=== PATIENT | male | born 1950 | race Caucasian/White ===

== ENCOUNTER 2021-10-22 09:01 | Inpatient (IN) | payer OTHER ==
--- OUTSIDE RECORDS SUMMARY | 2021-10-22 09:04 | XMS REPORT | Continuity of Care Document ---
:[address] [facility] t Address [address] [place] [address] Care Team Providers Name Role Phone Pcp, Patient Does Not Have A Primary Care Physician [id number] DEIB VARGHESE Attending Clinician Unavailable Debi Austin Attending Clinician KOTA DUGAN III Attending Clinician Unavailable KOTA DUGAN III Admitting Clinician Unavailable Payers Payer Name Policy Type Policy Number Effective Date Expiration Date S anupam MEDICARE PART A [id number] 2016 \T\ B 00:00:00 Problems Condition Condition Condition Status Onset Resolution Last Treating Co mments Source Name Details Category Date Date Treatment Clinician Date No known No known Disease Unive rs active active ity of problems problems [facility] Allergies, Adverse Reactions, Alerts Allergy Allergy Status Severity Reaction(s) Onset Inactive Treating Comm ents Source Name Type Date Date Clinician NO KNOWN Drug Active Univers ALLERGIE Class ity of S [facility] Social History Social Habit Start Date Stop Date Quantity Comments Source Exposure to 2021-08-29 2021-09-08 Not sure University of SARS-CoV-2 00:00:00 09:07:00 [facility] (event) [place] Tobacco use and 2021-09-08 2021-09-08 Never used Universit y of exposure 00:00:00 00:00:00 [facility] Alcohol intake 2021-09-08 2021-09-08 Current drinker Unive rsity of 00:00:00 00:00:00 of alcohol [facility] (finding) [place] Sex Ass[birth year] Universit y of 00:00:00 00:00:00 [facility] Smoking Status Start Date Stop Date Source Current every day smoker 2021-09-08 00:00:00 Uni versity [facility] Medications Ordered Filled Start Stop Current Ordering Indication Dosage Frequency Signature Comments Components Source Medication Medication Date Date Medication? Clinician (SIG) Name Name METOPROLOL Yes Take by Univ ers SUCCINATE 6-28 mouth. ity of ORAL 09:24: [place] [address] [place] [address] atorvastati Yes Take by Uni vers n calcium 6-28 mouth. ity of (ATORVASTAT 09:24: [place] IN ORAL) [address] [place] [address] meloxicam Yes [id number] 7.5mg Take 1 U nivers 7.5 mg 6- tablet by ity of tablet 00:00: mouth [place] 00 daily. [facility] Vital Signs Vital Name Observation Time Observation Value Comments Source Heart rate 2021-09-08 14:24:00 71 /min [facility] Systolic blood 2021-09-08 14:24:00 166 mm[facility]Hg[facility] Diastolic [facility] 2021-09-08 14:24:00 79 mm[Hg] [facility] Body height 2021-09-08 14:22:00 180.3 cm [facility] Body weight 2021-09-08 14:22:00 86.183 kg [facility] BMI 2021-09-08 14:22:00 26.50 kg/m2 [facility] Procedures This patient has no known procedures. Encounters Start End Encounter Admission Attending Care Care Encounter Source Date/Time Date/Time Type Type Clinicians Facility Department ID 2021-10-22 2021-10-22 Outpatient Katie VARGHESE [facility] [id number] Univers 09:00:00 09:00:00 [facility] [id number] [facility] 2021-10-22 2021-10-22 Outpatient Katie VARGHESE [facility] [id number] Univers 09:00:00 09:00:00 DEBI [facility] 2021-09-08 2021-09-08 Office Halima [facility] [id number] Univers 15:30:00 15:30:00 Visit [facility] [id number] it y of JAE [id number] Arvind as [place]?BLEA [id number] [address] MEDICAL OFFICE BUILDING 2021-09-08 2021-09-08 Outpatient R HALIMA [facility] [id number] Univers 15:30:00 09:41:30 DEBI dotson [facility] 2019-03-01 2019-03-01 Emergency X RITCHIE KIRBY, [facility] ERT [id number] Univers 17:28:25 20:07:00 KOTA jayden [facility] Results This patient has no known results.
[2021-10-22] MEDS ORDERED: DIAZEPAM 5 MG TABLET ONE (09:37)
[2021-10-22] MEDS ORDERED: TETANUS & DIPHTHERIA TOX,ADULT 0.5 ML VIAL ONE (09:38)
--- NOTE | 2021-10-22 11:20 | RAD REPORT ---
EXAM DESCRIPTION: RAD - Knee Left 3 View - 10/22/2021 10:51 am CLINICAL HISTORY: PAIN COMPARISON: Pelvis dated 10/22/2021; Lumbar Spine 3 Views dated 10/22/2021; Wrist Right 3 View dated FINDINGS: No acute fracture. No malalignment. Mild medial compartment spurring. A knee effusion is p resent. IMPRESSION: Nonspecific moderate knee effusion. No fractures identified.
--- NOTE | 2021-10-22 11:21 | RAD REPORT ---
EXAM DESCRIPTION: RAD - Pelvis - 10/22/2021 10:51 am CLINICAL HISTORY: PAIN COMPARISON: No comparisons FINDINGS/IMPRESSION: No acute fracture. No malalignment. No significant focal degenerative changes.
--- NOTE | 2021-10-22 11:21 | RAD REPORT ---
EXAM DESCRIPTION: RAD - Lumbar Spine 3 Views - 10/22/2021 10:51 am CLINICAL HISTORY: LOWER BACK PAIN COMPARISON: No comparisons FINDINGS: No acute fracture. No malalignment. Multilevel degenerative disc disease with endplate spu rring and disc height loss. IMPRESSION: No acute osseous abnormality involving the lumbar spine.
--- NOTE | 2021-10-22 11:22 | RAD REPORT ---
EXAM DESCRIPTION: RAD - Wrist Right 3 View - 10/22/2021 10:51 am CLINICAL HISTORY: PAIN COMPARISON: No comparisons FINDINGS/IMPRESSION: No acute fracture. Widened scapholunate interval likely reflecting ligamentous disruption. This may be chronic.
--- NOTE | 2021-10-22 11:31 | EDPHYS ---
Physician Documentation [facility] Name: Fahad Ramos Age: 71 yrs Sex: Male : 1950 Arrival Date: 10/22/2021 Time: 09:08 Bed 2 Private MD: ED Physician Rojelio Pacheco HPI: 10/22 09:11 This 71 yrs old Male presents to ER via Unassigned with complaints of Back Pain, Fall ms3 Injury. 09:11 The patient presents with pain that is acute. The symptoms are located in the low back. ms3 Onset: The symptoms/episode began/occurred 2 day(s) ago. The pain does not radiate. Associated signs and symptoms: Pertinent negatives: abdominal pain, numbness, tingling, urinary retention, weakness. The problem was sustained during a fall, while walking. Modifying factors: The patient symptoms are alleviated by nothing, the patient symptoms are aggravated by any movement. Severity of symptoms: At their worst the symptoms were severe, just prior to arrival, a " 10" out of "10", in the emergency department the symptoms have improved, a " 3" out of "10". 71 yo male with PMH of HTN and CAD presents via [facility] for low back pain that began 2 days ago after slipping and falling on gravel while at work. Patient states that he slipped in his kitchen this morning falling onto his buttocks and aggravated his back pain. EMS states patient's pain was a 10/10 on their arrival. 1 gm IV Tylenol given en route and patient's pain improved to a 3/10 in the ED and described as "pain." Patient denies alleviating factors. patient states that his pain is worse with movement. Patient denies bowel or bladder incontinence, numbness, or weakness.. Historical: - Allergies: 09:14 No Known Allergies; tw2 - Home Meds: 09:14 Metoprolol Tartrate Oral [Active]; Aspirin Oral [Active]; Lipitor Oral [Active]; tw2 - PMHx: 09:14 Hypertensive disorder; Hypercholesterolemia; cardiac stent; tw2 - Immunization history:: Adult Immunizations. - Social history:: Smoking status: . ROS: 09:11 Constitutional: Negative for fever, and chills. Neck: Negative for injury, pain, and ms3 swelling, Cardiovascular: Negative for chest pain, and palpitations. Respiratory: Negative for shortness of breath, cough, wheezing, and pleuritic chest pain, Abdomen/GI: Negative for abdominal pain, nausea, vomiting, diarrhea, and constipation. 09:11 Skin: Negative for injury, rash, and discoloration, Hematologic/Lymphatic: Negative for swollen nodes, abnormal bleeding, and unusual bruising. 09:11 Back: Positive for pain with movement. 09:11 All other systems are negative. Exam: 09:11 Constitutional: This is a well developed, well nourished patient who is awake, alert, ms3 and in no acute distress. Eyes: Pupils equal round and reactive to light, extra-ocular motions intact. Lids and lashes normal. Conjunctiva and sclera are non-icteric and not injected. Periorbital areas with no swelling, redness, or edema. Neck: Trachea midline, no cervical lymphadenopathy. Supple, full range of motion without nuchal rigidity, or vertebral point tenderness. No Meningismus. Chest/axilla: Normal chest wall appearance and motion. Nontender with no deformity. Cardiovascular: Regular rate and rhythm with a normal S1 and S2. No gallops, murmurs, or rubs. Normal PMI, no JVD. No pulse deficits. Respiratory: Lungs have equal breath sounds bilaterally, clear to auscultation and percussion. No rales, rhonchi or wheezes noted. No increased work of breathing, no retractions or nasal flaring. Abdomen/GI: Soft, non-tender, with normal bowel sounds. No distension or tympany. No guarding or rebound. No evidence of tenderness throughout. Skin: Warm, dry with normal turgor. Normal color with no rashes, no lesions, and no evidence of cellulitis. MS/ Extremity: Pulses equal, no cyanosis. Neurovascular intact. Full, normal range of motion. Psych: Awake, alert, with orientation to person, place and time. Behavior, mood, and affect are within normal limits. 09:11 Back: pain, that is moderate, of the left low back and right low back, ROM is painful, with rotation to the right, with rotation to the left, normal spinal alignment noted, vertebral tenderness, is not appreciated, muscle spasm, is appreciated in the low back area, left low back and right low back. Vital Signs: 09:08 BP 122 / 65; Pulse 83; Resp 17; Temp 98.1(O); Pulse Ox 96% on R/A; Weight 86.18 kg (R); tw2 Height 6 ft. (182.88 cm) (R); Pain 3/10; 10:56 BP 128 / 67; Pulse 91; Resp 17; Pulse Ox 97% on R/A; Pain 5/10; tw2 12:23 BP 100 / 48; Pulse 67; Resp 17; Pulse Ox 95% on R/A; tw2 13:20 BP 130 / 71; Pulse 86; Resp 17; Pulse Ox 97% on R/A; tw2 14:02 BP 129 / 68; Pulse 88; Resp 17; Pulse Ox 97% on R/A; tw2 15:00 BP 133 / 60; Pulse 89; Resp 17; Pulse Ox 97% on R/A; tw2 16:00 BP 135 / 84; Pulse 88; Resp 17; Pulse Ox 99% on R/A; tw2 17:00 BP 141 / 73; Pulse 88; Resp 17; Pulse Ox 95% on R/A; tw2 18:11 BP 169 / 77; Pulse 104; Resp 17; Pulse Ox 95% on R/A; tw2 19:00 BP 152 / 69; Pulse 101; Resp 20; Pulse Ox 94% ; vc1 20:40 BP 162 / 49; Pulse 103; Resp 20; Pulse Ox 97% ; vc1 09:08 Body Mass Index 25.77 (86.18 kg, 182.88 cm) tw2 MDM: 09:11 Patient medically screened. ms3 11:32 Differential diagnosis: Abrasions vs compression fx vs muscle spasm vs wrist fx vs knee ms3 fx. Data reviewed: vital signs, nurses notes, radiologic studies, and as a result, I will discharge patient. Counseling: I had a detailed discussion with the patient and/or guardian regarding: the historical points, exam findings, and any diagnostic results supporting the discharge/admit diagnosis, radiology results, the need for outpatient follow up. 14:14 ED course: Discussed case with Dr Bardales and he accepts patient. All questions ms3 answered. Discussed necessity of admission with patient and his . All questions answered.. 10/22 12:50 Order name: CBC with Diff ms3 10/22 12:50 Order name: CMP; Complete Time: 13:55 ms3 10/22 13:04 Order name: CK; Complete Time: 13:55 ms3 10/22 13:04 Order name: Urinalysis ms3 10/22 13:46 Order name: Manual Differential EDMS 10/22 15:01 Order name: SARS RAPID eb 10/22 09:11 Order name: Lumbar Spine (3 Views) XRAY; Complete Time: 11:27 ms3 10/22 09:23 Order name: Wrist Right 3 View XRAY; Complete Time: 11:27 ms3 10/22 09:23 Order name: Knee Left 3 View XRAY; Complete Time: 11:27 ms3 10/22 09:23 Order name: Pelvis XRAY; Complete Time: 11:27 ms3 10/22 11:57 Order name: CT Lumbar Spine Wo Con; Complete Time: 12:42 ms3 10/22 15:28 Order name: Diet Heart Healthy; Complete Time: 15:29 tw2 Administered Medications: 09:24 Not Given (Duplicate Order): Tetanus-Diphtheria Toxoid Adult 0.5 ml IM once; Provide tw2 Vaccine Information Statement (VIS). 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 Exp: 07/18/2023. Lot #: [id number]. } Route: IM; Site: left deltoid; 14:07 Follow up: Response: No adverse reaction tw2 09:34 Drug: Valium (diazepam) 5 mg Route: PO; tw2 11:00 Follow up: Response: No adverse reaction; Pain is decreased tw2 14:17 Drug: NS 0.9% 1000 ml Route: IV; Rate: 125 ml/hr; Site: left antecubital; tw2 Disposition Summary: 10/22/21 14:14 Hospitalization Ordered Hospitalization Status: Inpatient Admission ms3 Provider: Armand Bardales ms3 Location: Telemetry/MedSurg (Inpatient)(10/22/21 14:14) ms3 Condition: Stable(10/22/21 14:14) ms3 Problem: new ms3 Symptoms: are unchanged ms3 Bed/Room Type: Standard ms3 Room Assignment: 222(10/22/21 20:30) mw Diagnosis - Renal failure ms3 - Generalized weakness ms3 - Low back pain(10/22/21 14:14) ms3 - Alcohol abuse ms3 - Thrombocytopenia, unspecified ms3 Forms: - Medication Reconciliation Form ms3 - SBAR form ms3 Signatures: Dispatcher [employer] EDRadha William RN RN mw Williams, Irene, RN RN iw Eleanor Bassett RN RN tw2 Rojelio Pacheco DO DO ms3 Corrections: (The following items were deleted from the chart) 12:08 11:30 Home ms3 ms3 12:08 11:30 Stable ms3 ms3 12:08 11:30 Pain in right wrist ms3 ms3 12:08 11:30 Pain in left knee ms3 ms3 12:08 11:30 Abrasion of lower leg ms3 ms3 12:08 11:30 Low back pain ms3 ms3 20:30 14:14 ms3 mw
--- NOTE | 2021-10-22 11:31 | ER ---
Nurse's Notes [facility] Name: Fahad Ramos Age: 71 yrs Sex: Male : 1950 Arrival Date: 10/22/2021 Time: 09:08 Bed 2 Private MD: Diagnosis: Renal failure;Generalized weakness;Low back pain;Alcohol abuse;Thrombocytopenia, unspecified Presentation: 10/22 09:08 Chief complaint: EMS states: pt fell 2 days at work on some gravel, landed on his tw2 sacrum and right wrist. is c/o lower lumbar and sacral pain as well as LEFT knee. he slipped this morning. A\\T\\Ox4. was not strong enough to stand when we tried to get him up. pain was 10/10, we got 20 g R arm and gave 1 gm Tylenol IV and that brought the pain down to a 3/10. vs stable. Coronavirus screen: At this time, the client does not indicate any symptoms associated with coronavirus-19. Ebola Screen: Patient denies travel to an Ebola-affected area in the 21 days before illness onset. Initial Sepsis Screen: Does the patient meet any 2 criteria? HR > 90 bpm. No. Patient's initial sepsis screen is negative. Does the patient have a suspected source of infection? No. Patient's initial sepsis screen is negative. Risk Assessment: Do you want to hurt yourself or someone else? Patient reports no desire to harm self or others. Onset of symptoms was October 22, 2021. 09:08 Method Of Arrival: EMS: [facility] tw2 09:08 Acuity: MYRA 3 tw2 09:08 Note provider at bedside at this time. tw2 Triage Assessment: 09:08 General: Appears in no apparent distress. Behavior is calm, cooperative, appropriate tw2 for age. Pain: Complains of pain in low back, sacrum, left knee. Neuro: Level of Consciousness is awake, alert, obeys commands, Oriented to person, place, time, situation. Respiratory: Airway is patent Respiratory effort is even, unlabored, Respiratory pattern is regular, symmetrical. Musculoskeletal: Circulation, motion, and sensation intact. pt is wearing a preformed wrist brace at this time. 09:16 Derm: pt has multiple abrasions noted to b/l LE. no bleeding noted. tw2 Historical: - Allergies: 09:14 No Known Allergies; tw2 - Home Meds: 09:14 Metoprolol Tartrate Oral [Active]; Aspirin Oral [Active]; Lipitor Oral [Active]; tw2 - PMHx: 09:14 Hypertensive disorder; Hypercholesterolemia; cardiac stent; tw2 - Immunization history:: Adult Immunizations. - Social history:: Smoking status: . Screenin:19 Abuse screen: Denies threats or abuse. Nutritional screening: No deficits noted. tw2 Tuberculosis screening: No symptoms or risk factors identified. Fall Risk Fall in past 12 months (25 points). Secondary diagnosis (15 points) impaired mobility. Assessment: 09:17 Reassessment: see triage assessment. Neuro: Level of Consciousness is awake, alert, tw2 obeys commands, Oriented to person, place, time, situation. 10:20 Reassessment: pt in imaging at this time. tw2 10:53 Reassessment: Patient and/or family updated on plan of care and expected duration. Pain tw2 level reassessed. Patient is alert, oriented x 3, equal unlabored respirations, skin warm/dry/pink. pt back from imaging at this time. nad, rates pain 5/10 after being moved in imaging. 11:27 Reassessment: provider at bedside with results at this time. tw2 12:00 Reassessment: attempted to get pt in w/c. pt unable to stand on his own. states "that's tw2 the problem, i cant stand, i dont know how i am going to do this.". kaya cshulte assisting pt. provider notified. pt remains in w/c at this time for imaging. 12:17 Reassessment: pt back from CT via stretcher at this time. pt given sip of water. tw2 13:20 Reassessment: No changes from previously documented assessment. Patient and/or family tw2 updated on plan of care and expected duration. Pain level reassessed. Patient is alert, oriented x 3, equal unlabored respirations, skin warm/dry/pink. 14:02 Reassessment: No changes from previously documented assessment. Patient and/or family tw2 updated on plan of care and expected duration. Pain level reassessed. Patient is alert, oriented x 3, equal unlabored respirations, skin warm/dry/pink. 15:00 Reassessment: No changes from previously documented assessment. Patient and/or family tw2 updated on plan of care and expected duration. Pain level reassessed. Patient is alert, oriented x 3, equal unlabored respirations, skin warm/dry/pink. 16:00 Reassessment: No changes from previously documented assessment. Patient and/or family tw2 updated on plan of care and expected duration. Pain level reassessed. Patient is alert, oriented x 3, equal unlabored respirations, skin warm/dry/pink. 17:00 Reassessment: No changes from previously documented assessment. Patient and/or family tw2 updated on plan of care and expected duration. Pain level reassessed. Patient is alert, oriented x 3, equal unlabored respirations, skin warm/dry/pink. 18:11 Reassessment: Patient appears in no apparent distress at this time. No changes from tw2 previously documented assessment. Patient and/or family updated on plan of care and expected duration. Pain level reassessed. Patient is alert, oriented x 3, equal unlabored respirations, skin warm/dry/pink. 19:00 Reassessment: Patient and/or family updated on plan of care and expected duration. Pain vc1 level reassessed. Patient is alert, oriented x 3, equal unlabored respirations, skin warm/dry/pink. 20:00 Reassessment: Patient and/or family updated on plan of care and expected duration. Pain vc1 level reassessed. Patient is alert, oriented x 3, equal unlabored respirations, skin warm/dry/pink. Patient states feeling better. 20:40 Reassessment: Patient and/or family updated on plan of care and expected duration. Pain vc1 level reassessed. Patient is alert, oriented x 3, equal unlabored respirations, skin warm/dry/pink. Patient states feeling better. Vital Signs: 09:08 BP 122 / 65; Pulse 83; Resp 17; Temp 98.1(O); Pulse Ox 96% on R/A; Weight 86.18 kg (R); tw2 Height 6 ft. (182.88 cm) (R); Pain 3/10; 10:56 BP 128 / 67; Pulse 91; Resp 17; Pulse Ox 97% on R/A; Pain 5/10; tw2 12:23 BP 100 / 48; Pulse 67; Resp 17; Pulse Ox 95% on R/A; tw2 13:20 BP 130 / 71; Pulse 86; Resp 17; Pulse Ox 97% on R/A; tw2 14:02 BP 129 / 68; Pulse 88; Resp 17; Pulse Ox 97% on R/A; tw2 15:00 BP 133 / 60; Pulse 89; Resp 17; Pulse Ox 97% on R/A; tw2 16:00 BP 135 / 84; Pulse 88; Resp 17; Pulse Ox 99% on R/A; tw2 17:00 BP 141 / 73; Pulse 88; Resp 17; Pulse Ox 95% on R/A; tw2 18:11 BP 169 / 77; Pulse 104; Resp 17; Pulse Ox 95% on R/A; tw2 19:00 BP 152 / 69; Pulse 101; Resp 20; Pulse Ox 94% ; vc1 20:40 BP 162 / 49; Pulse 103; Resp 20; Pulse Ox 97% ; vc1 09:08 Body Mass Index 25.77 (86.18 kg, 182.88 cm) tw2 ED Course: 09:08 Patient arrived in ED. tw2 09:08 Arm band placed on. tw2 09:08 Bed in low position. Call light in reach. Side rails up X2. Pulse ox on. NIBP on. pt tw2 refused blanket at this time, states "im always hot in this weather". 09:11 Eleanor Bassett, KAYA is Primary Nurse. tw2 09:11 Rojelio Pacheco DO is Attending Physician. ms3 09:14 Triage completed. tw2 10:53 Lumbar Spine (3 Views) XRAY In Process Unspecified. EDMS 10:53 Knee Left 3 View XRAY In Process Unspecified. EDMS 10:53 Pelvis XRAY In Process Unspecified. EDMS 10:53 Wrist Right 3 View XRAY In Process Unspecified. EDMS 11:33 Darrell Ceballos MD is Referral Physician. ms3 11:45 IV discontinued, intact, bleeding controlled, No redness/swelling at site. Pressure tw2 dressing applied. 11:45 No provider procedures requiring assistance completed. tw2 12:04 Awaiting: further imaging and reevaluation by provider d/t inability to stand and move tw2 independently. 12:09 CT Lumbar Spine Wo Con In Process Unspecified. EDMS 13:30 Inserted saline lock: 20 gauge in left antecubital area, using aseptic technique. tw2 ,using aseptic technique. KAYA Schulte Blood collected. 14:12 Armand Bardales is Hospitalizing Provider. ms3 19:20 Primary Nurse role handed off by Eleanor Bassett RN tw2 21:16 Vandana Bartholomew RN is Primary Nurse. vc1 Administered Medications: 09:24 Not Given (Duplicate Order): Tetanus-Diphtheria Toxoid Adult 0.5 ml IM once; Provide tw2 Vaccine Information Statement (VIS). 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 Exp: 07/18/2023. Lot #: [id number]. } Route: IM; Site: left deltoid; 14:07 Follow up: Response: No adverse reaction tw2 09:34 Drug: Valium (diazepam) 5 mg Route: PO; tw2 11:00 Follow up: Response: No adverse reaction; Pain is decreased tw2 14:17 Drug: NS 0.9% 1000 ml Route: IV; Rate: 125 ml/hr; Site: left antecubital; tw2 Medication: 09:35 Vaccine Information Statement (VIS) provided today. Questions and/or concerns tw2 addressed. VIS edition date: October 17, 2020. Outcome: 11:30 Discharge ordered by . ms3 14:14 Decision to Hospitalize by Provider. ms3 21:17 Admitted to Med/surg accompanied by nurse, via stretcher, room 222, with chart, Report vc1 called to Receiving Nurse 21:17 Condition: good 21:17 Instructed on the need for admit. 21:17 Patient left the ED. vc1 Signatures: Dispatcher [employer] EDMS Eleanor Bassett RN RN tw2 Rojelio Pacheco DO DO ms3 Vandana Bartholomew RN RN vc1 Corrections: (The following items were deleted from the chart) 09:17 09:08 Pain: Complains of pain in low back, sacrum, left knee tw2 tw2 09:17 09:08 Musculoskeletal: Circulation, motion, and sensation intact. tw2 tw2 09:35 09:18 VIS not applicable for this client. tw2 tw2
--- NOTE | 2021-10-22 12:38 | RAD REPORT ---
EXAM DESCRIPTION: CT - Spine Lumbar Wo Con - 10/22/2021 12:09 pm CLINICAL HISTORY: Low back pain, trauma COMPARISON: No comparisons TECHNIQUE: Axial noncontrast CT imaging of the lumbar spine was performed with coronal and sagittal re-formatted images. All CT scans are performed using dose optimization technique as appropriate and may include automated exposure control or mA/KV adjustment according to patient size. FINDINGS: Mild compression deformities at L1 and L2 favored chronic. No acute fractures seen. Mild d iffuse disc height loss. No aggressive marrow pattern or malalignment. Right renal cyst. Cholecystect antonio. Atherosclerosis. Paraspinal tissues are normal in thickness. No paraspinal abscess or hematoma seen. Intervertebral disc disease assessment is inherently limited by CT. Within these limitations, no high -grade canal stenosis suspected. IMPRESSION: Mild compression deformities at L1-L2 favored chronic. No acute fracture identified.
[2021-10-22 13:40] LABS: Absolute Lymphocytes (CBC) 0.4 K/uL (0.7-4.9); Hematocrit 40.7 % (39.6-49.0); Lymphocytes % 2.5 % (15.3-44.8); MCV 86.3 fL (80-100); MPV 10.3 fL (7.6-11.3); RBC Red Blood Cell Count 4.72 M/uL (4.33-5.43)
[2021-10-22 13:46] LABS: Albumin 2.7 g/dL (3.4-5.0); Bilirubin Total 1.2 mg/dL (0.2-1.0); Potassium 3.7 mmol/L (3.5-5.1); Protein, Total 7.2 g/dL (6.4-8.2)
[2021-10-22] MEDS ORDERED: NA CHLORIDE 0.9% 1,000 ML ONE (14:20)
[2021-10-22 15:57] LABS: SARS-CoV-2 Antigen Rapid Res Negative (Negative)
[2021-10-22 15:59] LABS: Toxic Granulation PRESENT
[2021-10-22 16:00] LABS: Anisocytosis SLIGHT; Blood Morphology Comment NOTED (NOT SEEN); Dohle Bodies PRESENT
[2021-10-22 16:01] LABS: Platelet Estimate DECR
--- NOTE | 2021-10-22 16:59 | P.HP ---
Certification for Inpatient Patient admitted to: Inpatient With expected LOS: >2 Midnights Practitioner: I am a practitioner with admitting privileges, knowledge of patient current condition, hospital course, and medical plan of care. Services: Services provided to patient in accordance with Admission requirements found in Title 42 Section 412.3 of the Code of Federal Regulations Patient History Date of Service: 10/22/21 Reason for admission: Fall and leg pain History of Present Illness: 71-year-old gentleman with a history of hypertension coronary artery disease was brought to the emergency department because patient fell and could not get up. He reports he fell at work on a gravel and landed on his buttocks 2 days ago. He stated he has chronic low back pain and bilateral knee pain which got worse after the fall. Patient could not walk this morning due to the pain and was needing total assist. His spouse called ambulance and patient brought to the emergency department. Noted he has bruises on bilateral knees. Blood work shows STACEY with creatinine of 3.0, elevated CK, leukocytosis and elevated bilirubin. Lumbar spine x-ray and CT lumbar spine demonstrate compression deformities at L1 and L2. There was a report that patient is alcoholic and drinks alcohol daily. Patient admitted to alcoholism in the past but not recently. He stated his last drink was about 5 days ago, never gone into alcohol withdrawal. Patient is hospitalized for further management. - Past Medical/Surgical History -: Hypertension -: Hypercholesterolemia -: Coronary artery disease -: CABG - Family History Father -: Heart disease - Social History Smoking Status: Current every day smoker Alcohol use: Yes CD- Drugs: No Place of Residence: Home Review of Systems Other: Patient denies any fever or chills. He denies any shortness of breath. He denies any chest pain or abdominal pain. He endorses low back pain and bilateral knee pain worse on the left. Except as documented, all other systems reviewed and negative. Physical Examination - Physical Exam General: Alert, In no apparent distress, Oriented x3 HEENT: Atraumatic, Normocephalic, PERRLA, Mucous membr. moist/pink, EOMI, Sclerae nonicteric Neck: Supple, 2+ carotid pulse no bruit, JVD not distended, No Thyromegaly Respiratory: Clear to auscultation bilaterally, Normal air movement Cardiovascular: No edema, Regular rate/rhythm, Normal S1 S2 Capillary refill: <2 Seconds Gastrointestinal: Normal bowel sounds, Soft and benign, Non-distended, No tenderness Musculoskeletal: No swelling, No contractures, Tenderness (Bilateral knees, worse on the left) Integumentary: No cyanosis, Other (Multiple excoriations bilateral knees) Neurological: Normal speech (Motor: RLL 3/5, LLL 2/5) Lymphatics: No axilla or inguinal lymphadenopathy - Studies Laboratory Data (last 24 hrs) 10/22/21 13:15: Sodium 137, Potassium 3.7, BUN 56 H, Creatinine 3.08 H, Glucose 122 H, Total Bilirubin 1.2 H, AST 91 H, ALT 72, Alkaline Phosphatase 106 10/22/21 13:15: WBC 16.3 H, Hgb 13.8, Hct 40.7, Plt Count 81 L Assessment and Plan - Problems (Diagnosis) (1) Acute renal failure Current Visit: Yes Status: Acute (2) Rhabdomyolysis Current Visit: Yes Status: Acute (3) Elevated liver enzymes Current Visit: Yes Status: Acute (4) Low back pain Current Visit: Yes Status: Acute (5) Fall Current Visit: Yes Status: Acute (6) Decreased mobility Current Visit: Yes Status: Acute - Plan Admit patient to the medical floor. Aggressive hydration with IV fluid Youssef catheter Monitor renal function for improvement Nephrology consult Obtain blood culture and start antibiotics given leukocytosis. Monitor CBC Monitor CK level Neurochecks PT consult. Obtain liver and renal ultrasound Reconcile and continue other home medications. - Advance Directives Does patient have a Living Will: No Does patient have a Durable POA for Healthcare: No
[2021-10-22] MEDS ORDERED: MORPHINE 4 MG/ML SYR IV PRN (20:57)
[2021-10-22] MEDS ORDERED: ACETAMINOPHEN 500 MG TAB PO PRN (20:57)
[2021-10-22] MEDS: NA CHLORIDE 0.9% 1,000 ML IV SCH (21:50)
[2021-10-22] MEDS: HYDROCODONE/APAP 5/325 MG TAB PO PRN (21:50)
[2021-10-22] MEDS: DIAZEPAM 5 MG TABLET PO PRN (21:51)
[2021-10-22 22:17] VITALS: BMI 25.7
[2021-10-23] MEDS ORDERED: BENZONATATE 100 MG CAP PO PRN
[2021-10-23] MEDS: HEPARIN 5000 UNIT/ML 1 ML VIAL SQ SCH ×3 (01:01→18:07)
[2021-10-23 04:02] LABS: Specific Gravity 1.025 (1.005-1.030); Urine Bilirubin Negative (Negative); Urine Blood 2+ (Negative); Urine Clarity Clear (Clear); Urine Color Yellow (Yellow); Urine Glucose Negative (Negative); Urine Protein 2+ (Negative); Urine Urobilinogen 0.2 mg/dL (0.2-1.0)
[2021-10-23 04:24] LABS: Urine Bacteria >50 /HPF (<20); Urine Granular Casts 0-5 /LPF (None Seen); Urine Mucus 2+ /HPF (None Seen)
[2021-10-23] MEDS: HYDROCODONE/APAP 5/325 MG TAB PO PRN ×4 (05:31→21:38)
[2021-10-23] MEDS: NA CHLORIDE 0.9% 1,000 ML IV SCH ×3 (05:32→21:37)
[2021-10-23 06:38] LABS: Albumin 2.2 g/dL (3.4-5.0); Bilirubin Total 1.1 mg/dL (0.2-1.0); Magnesium 1.8 mg/dL (1.8-2.4); Phosphorus 3.3 mg/dL (2.5-4.9); Protein, Total 6.3 g/dL (6.4-8.2); Thyroid Stimulating Hormone 0.452 uIU/mL (0.360-3.740)
[2021-10-23 06:43] LABS: Potassium 2.9 mmol/L (3.5-5.1)
[2021-10-23] MEDS: KCL 20 MEQ/100 mL IVPB 20 MEQ/100 ML BAG IV SCH ×3 (06:52→11:57)
[2021-10-23 06:55] LABS: Absolute Lymphocytes (CBC) 0.4 K/uL (0.7-4.9); Hematocrit 36.8 % (39.6-49.0); Lymphocytes % 3.2 % (15.3-44.8); MCV 85.4 fL (80-100); MPV 11.2 fL (7.6-11.3); RBC Red Blood Cell Count 4.31 M/uL (4.33-5.43)
[2021-10-23] MEDS ORDERED: MAGNESIUM SULFATE 1 gm IVPB 1 GM/100 ML BAG IV ONE (08:00)
--- NOTE | 2021-10-23 08:21 | RAD REPORT ---
EXAM DESCRIPTION: US - Liver Only - 10/23/2021 12:30 am CLINICAL HISTORY: Liver and renal US Abdominal pain COMPARISON: No comparisons FINDINGS: Hepatic size is mildly prominent. Mildly heterogenous liver parenchymal pattern is observe d.This likely indicates chronic underlying inflammation or fatty infiltration.No focal liver lesion o r intrahepatic biliary dilatation.No evidence of portal vein thrombosis. Spleen is mildly enlarged measuring 12 cm. IMPRESSION: Mild hepatosplenomegaly suspected. Heterogenous appearance to the liver parenchyma suggests underlying chronic inflammation or fatty inf iltration.
--- NOTE | 2021-10-23 08:22 | RAD REPORT ---
EXAM DESCRIPTION: US - Renal Ultrasound-Complete - 10/23/2021 12:30 am CLINICAL HISTORY: STACEY Flank pain. COMPARISON: No comparisons FINDINGS: Both kidneys are normal in size, shape and echotexture. The right kidney measures 8.9 x 5.4 x 4.9 cm. No hydronephrosis, focal mass or perinephric fluid. 15 mm cortical renal cyst. The left kidney measures 10.0 x 6.2 x 5.4 cm. No hydronephrosis, focal mass or perinephric fluid. The urinary bladder is incompletely distended without gross abnormality seen. IMPRESSION: No significant pathologic finding.
[2021-10-23] MEDS ORDERED: VANCOMYCIN 1.5 GM in NA CHLORIDE 0.9% 500 ML IVPB SCH (09:00)
[2021-10-23] MEDS ORDERED: VANCOMYCIN 1 GM in NA CHLORIDE 0.9% 250 ML IVPB SCH (09:00)
--- NOTE | 2021-10-23 10:20 | P.CNS ---
Date of Consult: 10/23/21 Reason for Consult: Renal failure Requesting Physician: carline hwang Chief Complaint: Fall and leg pain History of Present Illness: 71M w/ PMHx of Htn, HLD, CAD & chronic alcoholic drinker, who p/w generalized weakness w/ recent fall, found to have UTI, mild rhabdomyolysis & elevated serum creatinine. Renal function at baseline is unknown. He received IV fluids & started on abx. SCr improved from 3.1 initially to 2.6 currently. On eval today, he had stable VS. Has some slurring of speech. No c/o dysuria or flank pain. Allergies No Known Allergies Allergy (Verified 10/22/21 21:55) Home Medications: Metoprolol Tartrate [Lopressor] 25 mg PO BID 10/22/21 - Past Medical/Surgical History Diabetic: No -: Hypertension -: Hypercholesterolemia -: Coronary artery disease -: CABG - Family History Father Medical History: Heart disease - Social History Alcohol use: Yes CD- Drugs: No Caffeine use: Yes Place of Residence: Home Review of Systems General: Weakness Eyes: Unremarkable ENT: Unremarkable Respiratory: Unremarkable Cardiovascular: Unremarkable Gastrointestinal: Unremarkable Genitourinary: Unremarkable Musculoskeletal: Other (Generalized weakness) Integumentary: Unremarkable Neurological: Unremarkable Lymphatics: Unremarkable Physical Examination Temp Pulse Resp BP Pulse Ox 98.5 F 99 H 18 112/67 94 10/23/21 08:00 10/23/21 08:00 10/23/21 09:49 10/23/21 08:00 10/23/21 09:49 General: In no apparent distress HEENT: Atraumatic, Normocephalic Neck: Supple, JVD not distended Respiratory: Clear to auscultation bilaterally, Other (Symmetric chest expansion) Cardiovascular: No rubs, No murmurs Gastrointestinal: Soft and benign, No rebound, No guarding Musculoskeletal: No clubbing, No swelling Integumentary: No warmth Neurological: Normal tone, Abnormal speech Lymphatics: No axilla or inguinal lymphadenopathy Urinary: Other (No bladder distention) External genitalia: Deferred Rectal: Deferred Laboratory Data (last 24 hrs) 10/22/21 13:15: Sodium 137, Potassium 3.7, BUN 56 H, Creatinine 3.08 H, Glucose 122 H, Total Bilirubin 1.2 H, AST 91 H, ALT 72, Alkaline Phosphatase 106 08/11/22 13:15: WBC 16.3 H, Hgb 13.8, Hct 40.7, Plt Count 81 L Conclusions/Impression: # STACEY vs STACEY on CKD 2/2 prerenal state +/- ATN from prolonged prerenal Baseline renal fxn unknown SCr 3.1 on adm, improved to 2.6 today Urinalysis +proteinuria/bacteria/pyuria/hematuria Renal US unremarkable CPK mildly elevated Cont abx F/u random urine chem, upcr, BNP, iPTH, 25OHD Cont IV fluid, noe [place] po fluid intake Monitor renal panel # UTI Abx per primary team BCx +GPCs F/u UCx # Htn, HLD, Hx of CAD Monitor BP Cont current med regimen # Anemia, thrombocytopenia No schistocytes, no kimberly cells 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 Quadriplegia F/u CTL spine MRI PT/OT
[2021-10-23 10:42] LABS: Anisocytosis SLIGHT; Blood Morphology Comment NOTED (NOT SEEN); Toxic Granulation PRESENT
[2021-10-23 10:43] LABS: Platelet Estimate DECR
[2021-10-23] MEDS: CEFEPIME 1 GM in NA CHLORIDE 0.9% 100 ML IV SCH (11:23)
--- NOTE | 2021-10-23 13:46 | P.PN ---
Subjective Date of Service: 10/23/21 Chief Complaint: Fall and leg pain No changes from yesterday. Patient not able to move her legs at a hip level and upper extremities at the shoulder level. She is complaining of pain in the back of his neck and difficulty turning his head. Blood cultures: Both bottles showing gram-positive cocci on gram stain. Physical Examination - Vital Signs Temperature: 97.6 F Blood Pressure: 112/70 Pulse: 102 Respirations: 18 Pulse Ox (%): 95 - Studies Laboratory Data (last 24 hrs) 10/22/21 13:15: Sodium 137, Potassium 3.7, BUN 56 H, Creatinine 3.08 H, Glucose 122 H, Total Bilirubin 1.2 H, AST 91 H, ALT 72, Alkaline Phosphatase 106 10/22/21 13:15: WBC 16.3 H, Hgb 13.8, Hct 40.7, Plt Count 81 L Assessment And Plan - Current Problems (Diagnosis) (1) Acute renal failure Current Visit: Yes Status: Acute (2) Rhabdomyolysis Current Visit: Yes Status: Acute (3) Elevated liver enzymes Current Visit: Yes Status: Acute (4) Low back pain Current Visit: Yes Status: Acute (5) Fall Current Visit: Yes Status: Acute (6) Decreased mobility Current Visit: Yes Status: Acute - Plan Physical Exam General: Alert, In no apparent distress, Oriented x3 HEENT: PERRLA, Mucous membr. moist/pink, EOMI, Sclerae nonicteric Respiratory: Clear to auscultation bilaterally, Normal air movement Cardiovascular: No edema, Regular rate/rhythm, Normal S1 S2 Capillary refill: <2 Seconds Gastrointestinal: Normal bowel sounds, Soft and benign, Non-distended, No ten derness Musculoskeletal: No swelling, No contractures, Tenderness (Bilateral knees, worse on the left) Integumentary: No cyanosis, Multiple excoriations bilateral knees. Neurological: Normal speech (Motor: RLL 3/5, LLL 2/5) Continue IV fluid Youssef catheter for strict intake and output. Renal ultrasound reviewed: No obstructive uropathy Monitor renal function for improvement Seen by nephrology. Blood culture showing gram-positive cocci on gram stain. Increased bands but leukocytosis is trending down. Continue broad-spectrum antibiotics. Follow cultures Monitor CBC Rhabdomyolysis resolved. Obtain MRI of cervical, and thoracolumbar spine due to concern for quadriplegia. Start IV dexamethasone. Neurochecks PT consult.
[2021-10-23] MEDS ORDERED: CYCLOBENZAPRINE 10 MG TAB PO PRN (15:35)
--- NOTE | 2021-10-23 19:52 | RAD REPORT ---
EXAM DESCRIPTION: MRI - Lumbar Spine Wo Con - 10/23/2021 7:28 pm CLINICAL HISTORY: Paraplegia COMPARISON: Spine Lumbar Wo Con dated 10/22/2021; Lumbar Spine 3 Views dated 10/22/2021 TECHNIQUE: Sagittal T1-weighted, T2-weighted and T2-STIR weighted sequences were obtained. Axial T1 -weighted and heavily T2-weighted sequenceswere obtained through the lumbar disc levels. FINDINGS: Post lumbar level is partially sacralized. This body is labeled L5 for the purposes of thi s study. This may cause the vertebral body numbering system to be slightly different from the plain f ilms and CT studies. Partial compression of T12 and L1 noted not exceeding 20%. No active marrow process. Fatty marrow degenerative changes are seen throughout the lumbar spine. There are no acute compressio n fracture changes. No pathologic bone process or paraspinal mass. Conus is normal with no clumping or thickening of the cauda equina. T12-L1 level: No significant findings. L1-2 level: Broad-based protrusion of disc material across the central canal and into each exit no en. There is endplate spurring present as well. Ligamentous thickening and facet degenerative changes are present. Central canal is stenotic to 7 mm. Moderately severe bilateral foraminal stenosis prese nt in the right severe left foraminal stenosis. There is complete effacement of the left perineural f at. L2-3 level: Disc is desiccated with circumferential bulging of disc material. Midline canal is 10 mm. Mild to moderate right-side and moderately severe left-sided foraminal stenosis present. L3-4 level: Disc is desiccated with prominent circumferential bulging of disc material across the giulia tral canal and into each exit foramen. Facet hypertrophic degenerative changes are present along with ligamentous thickening. Central canal is 10 mm in the midline. Moderately severe bilateral foraminal stenosis present. L4-5 level: Disc is desiccated with loss in height. Broad-based herniation disc material is present a cross the central canal extending into each exit foramen. Severe bilateral foraminal stenosis present from protruding disc material and endplate spurring. No central spinal stenosis. L5-S1 level: Nonmovable transition level shows no central spinal stenosis. No significant foraminal s tenosis. IMPRESSION: No acute compression fracture. Fatty marrow degenerative changes are present throughout the lumbar spine with no active marrow process. Very advanced multilevel lumbar spondylosis with multilevel borderline to mild spinal stenosis. Patie nt has multiple levels of moderate to severe foraminal stenosis. Findings are detailed at each level in the body of the report. The lowest lumbar level is a transitio n body. This is labeled L5 for the purposes of this study. This may make the numbering system on this examination off by 1 level [address] and plain film report.
--- NOTE | 2021-10-23 20:00 | RAD REPORT ---
EXAM DESCRIPTION: MRI - C Spine Wo Cont - 10/23/2021 7:28 pm CLINICAL HISTORY: Paraplegia COMPARISON: No comparisons TECHNIQUE: Sagittal T1-weighted, T2-weighted and T2-STIR sequences were obtained as well as T2 medic sequence. FINDINGS: No acute compression fractures. Marrow degenerative changes are scattered throughout the c ervical spine with active degenerative change seen at the C3-4 disc level. There are prominent endpla te degenerative changes at this level. No suspicious marrow edema or marrow replacing process. No par aspinal mass. Cerebellar tonsils and mid-line skull base show no suspicious finding. No significant finding at the C1 and C2 levels. C2-3 level: Midline disc herniation is present 4 mm AP x 10 mm TR x 11 mm CC. There is flattening of the cord. Posterior ligamentous thickening is present. Midline canal diameter is 7 mm. Significant bi lateral foraminal stenosis seen from bulging disc material and uncovertebral joint hypertrophy. C3-4 level: Disc is thinned and desiccated. Approximately 4 mm midline disc herniation is seen. Endpl ate spurring changes are present. Posterior ligamentous thickening seen. Spinal stenosis to 7 mm is p resent. Significant bilateral foraminal stenosis present from bulging disc material and bony hypertro phy. C4-5 level: Disc is thinned and desiccated. Broad-based disc bulge and endplate spurring changes flat ten the cord attenuate the subarachnoid spaces. Posterior ligamentous thickening is present. Spinal s tenosis to 7 mm is present. Severe bilateral foraminal stenosis is present from protruding disc mater ial, uncovertebral joint hypertrophy and facet hypertrophy. C5-6 level: Disc is desiccated. Large treating spurring changes are present in the midline and left-s kp central canal extending into the exit foramen. Moderate right-sided and severe left-sided foramin al stenosis changes are present. Spinal stenosis to 8-9 mm present midline. The cord is flattened. C6-7 level: Disc is thinned and desiccated. Protruding disc material is probably a broad-based hernia tion. Endplate spurring. Posterior ligamentous thickening present. Flattened with spinal stenosis. Hy pertrophy and protruding disc material cause severe bilateral foraminal stenosis. C7-T1 level: Disc is desiccated with loss in height. Disc bulge and endplate spurring changes attenua te the anterior subarachnoid space and flatten the cord. Spinal stenosis is 8 mm. Moderate severity b ilateral foraminal stenosis present. Cord is flattened at multiple levels. No cord signal abnormality confirmed. IMPRESSION: Severe cervical spondylosis changes are present throughout all levels of the cervical sp ine with multiple levels showing cord flattening and spinal stenosis down to 7 mm. Multilevel foraminal stenosis is present from mild to severe. Findings are detailed at each level in the body of the report. Degenerative changes are present throughout the vertebral bodies and endplates. No suspicious marrow edema or marrow replacing process.
--- NOTE | 2021-10-23 20:05 | RAD REPORT ---
EXAM DESCRIPTION: MRI - Thoracic Spine Wo Contr - 10/23/2021 7:28 pm CLINICAL HISTORY: Paraplegia COMPARISON: None. TECHNIQUE: Sagittal T1 weighted, T2 weighted and T2 STIR weighted sequences were obtained. Axial T2 weighted images were obtained through each disc level. FINDINGS: There is mild less than 20% height loss in the T12 body. No active marrow process. This is a chronic finding. Remaining thoracic vertebral bodies are normal in height. No abnormal marrow sign al pattern. Multiple levels show disc bulge and endplate spurring changes. Prominent disc bulge and endplate spur ring changes at T1-2 and T2-3 flatten the anterior margin of the cord. Midline canal is 8 mm. No sign ificant foraminal stenosis. Endplate spurring elsewhere in the cervical spine does not cause significant canal narrowing or shai ening of the cord. No mass of the central canal. The thoracic cord shows no signal abnormality or exp ansile change. IMPRESSION: MRI thoracic spine imaging shows far less degenerative change than seen in the cervical and lumbar spines. There is spinal stenosis to 8 mm and slight flattening of the cord at T1-2 and T2-3. No acute or active marrow pattern in the thoracic vertebrae.
[2021-10-23] MEDS: dexAMETHasone 4 MG/ML VIAL IV SCH (21:37)
[2021-10-23] MEDS: DIAZEPAM 5 MG TABLET PO PRN (21:38)
[2021-10-24] MEDS: HEPARIN 5000 UNIT/ML 1 ML VIAL SQ SCH ×2 (01:42→09:17)
[2021-10-24 04:28] LABS: Absolute Lymphocytes (CBC) 0.3 K/uL (0.7-4.9); Hematocrit 37.6 % (39.6-49.0); MCV 88.4 fL (80-100); MPV 11.1 fL (7.6-11.3); RBC Red Blood Cell Count 4.25 M/uL (4.33-5.43)
[2021-10-24 04:41] LABS: Magnesium 2.4 mg/dL (1.8-2.4); Phosphorus 3.4 mg/dL (2.5-4.9)
[2021-10-24 04:43] LABS: Albumin 1.8 g/dL (3.4-5.0); Bilirubin Total 1.2 mg/dL (0.2-1.0); Protein, Total 5.9 g/dL (6.4-8.2)
[2021-10-24 05:54] LABS: Ferritin 402.1 ng/mL (26-388)
[2021-10-24 09:07] VITALS: O2SAT 94
[2021-10-24] MEDS: dexAMETHasone 4 MG/ML VIAL IV SCH (09:16)
[2021-10-24] MEDS: CEFEPIME 1 GM in NA CHLORIDE 0.9% 100 ML IV SCH (09:17)
--- NOTE | 2021-10-24 09:50 | P.PN ---
Subjective Date of Service: 10/24/21 Chief Complaint: Fall and leg pain Subjective: No new changes Physical Examination - Vital Signs Temperature: 97.2 F Blood Pressure: 113/70 Pulse: 96 Respirations: 17 Pulse Ox (%): 92 - Physical Exam General: Other (appears as his stated age) HEENT: Atraumatic, Normocephalic Neck: Supple, JVD not distended Respiratory: Other (Symmetric chest expansion) Cardiovascular: No rubs, No murmurs Gastrointestinal: Soft and benign, No guarding Musculoskeletal: No clubbing Integumentary: No warmth Neurological: Normal tone Urinary: Other (No bladder distention) External genitalia: Deferred Rectal: Deferred Assessment And Plan - Plan # STACEY vs STACEY on CKD 2/2 prerenal state +/- ATN from prolonged prerenal Baseline renal fxn unknown SCr 3.1 on adm, improved to 2.1 today Urinalysis +proteinuria/bacteria/pyuria/hematuria Renal US unremarkable CPK mildly elevated Cont abx Urine chem non prerenal, +mild proteinuria iPTH wnl, no advanced CKD at baseline Dc IV fluid [place] po fluid intake Monitor renal panel # UTI Abx per primary team BCx +GPCs F/u UCx # Htn, HLD, Hx of CAD Monitor BP Cont current med regimen # Anemia, thrombocytopenia No schistocytes, no kimberly cells F/u haptoglobin, 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 Quadriplegia F/u CTL spine MRI PT/OT
[2021-10-24] MEDS ORDERED: NA CHLORIDE 0.9% 1,000 ML IV SCH (10:11)
[2021-10-24 10:49] LABS: Arterial Blood Carboxyhemoglob 1.2 % (0-1.5); Blood Gas Oxyhemoglobin 91.3 % (94-97); Blood O2 Saturation 93.5 % (92-98.5)
--- NOTE | 2021-10-24 13:37 | P.PN ---
Subjective Date of Service: 10/24/21 Chief Complaint: Fall and leg pain No changes from yesterday. Patient not able to move her legs at a hip level and upper extremities at the shoulder level. He reports pain-back of neck. No fever. Physical Examination - Vital Signs Temperature: 97.9 F Blood Pressure: 149/71 Pulse: 105 Respirations: 18 Pulse Ox (%): 93 Assessment And Plan - Current Problems (Diagnosis) (1) Acute renal failure Current Visit: Yes Status: Acute (2) Rhabdomyolysis Current Visit: Yes Status: Acute (3) Elevated liver enzymes Current Visit: Yes Status: Acute (4) Low back pain Current Visit: Yes Status: Acute (5) Fall Current Visit: Yes Status: Acute (6) Decreased mobility Current Visit: Yes Status: Acute - Plan Physical Exam General: Alert, In no apparent distress, Oriented x3 HEENT: PERRLA, Mucous membr. moist/pink, EOMI, Sclerae nonicteric Respiratory: Clear to auscultation bilaterally, Normal air movement Cardiovascular: No edema, Regular rate/rhythm, Normal S1 S2 Gastrointestinal: Normal bowel sounds, Soft and benign, Non-distended, No tenderness Musculoskeletal: No swelling, No contractures, Tenderness (Bilateral knees, worse on the left) Integumentary: No cyanosis, Multiple excoriations bilateral knees. Neurological: Normal speech (Motor: RLL 3/5, LLL 2/5) Continue IV fluid Youssef catheter for strict intake and output. Renal ultrasound reviewed: No obstructive uropathy Monitor renal function for improvement Nephrology is following Blood culture showing: Coagulase positive staph. Antibiotic sensitivities pending. No significant improvement in leukocytosis. Continue vancomycin. Discontinue IV cefepime. Infectious disease consult Repeat cultures. May need TTE/CHRISTY to assess for endocarditis. Monitor CBC Rhabdomyolysis resolved. MRI of the cervical and thoracolumbar spine result reviewed-cervical spinal stenosis, severe foraminal stenosis in both her cervical and lumbar region. Continue steroid Neurochecks Neurology consult Continue PT. Diet as tolerated.
[2021-10-24 15:56] LABS: UR PROTEIN 201.6 mg/dL (<11.9); Urine Protein/Creatinine Ratio 1.47 ratio (<0.15)
--- NOTE | 2021-10-24 18:09 | P.DS ---
Admission Date: 10/22/21 Discharge Date: 10/24/21 Disposition: TRANSFER TO [facility] Reason for Admission: Fall and leg pain - Problems (1) Acute renal failure Status: Acute (2) Rhabdomyolysis Status: Acute (3) Elevated liver enzymes Status: Acute (4) Low back pain Status: Acute (5) Fall Status: Acute (6) Decreased mobility Status: Acute (7) Quadriparesis Status: Acute Brief History of Present Illness: 71-year-old gentleman with a history of hypertension coronary artery disease was brought to the emergency department because patient fell and could not get up. He reports he fell at work on a gravel and landed on his buttocks 2 days ago. He stated he has chronic low back pain and bilateral knee pain which got worse after the fall. Patient could not walk this morning due to the pain and was needing total assist. His spouse called ambulance and patient brought to the emergency department. Noted he has bruises on bilateral knees. Blood work shows STACEY with creatinine of 3.0, elevated CK, leukocytosis and elevated bilirubin. Lumbar spine x-ray and CT lumbar spine demonstrate compression deformities at L1 and L2. There was a report that patient is alcoholic and drinks alcohol daily. Patient admitted to alcoholism in the past but not recently. He stated his last drink was about 5 days ago, never gone into alcohol withdrawal. Patient was hospitalized for further management. Hospital Course: Patient admitted to the medical floor and treated aggressively with IV fluid for STACEY Youssef catheter inserted for strict intake and output. Renal ultrasound done showed no obstructive uropathy Renal function trended down with IV hydration Nephrology saw and assisted with management Blood culture growing coagulase positive staph. Antibiotic sensitivities pending. No significant improvement in leukocytosis. Patient initially treated with IV cefepime and vancomycin and scaled down to IV vancomycin. Patient May need TTE/CHRISTY to assess for endocarditis. He had rhabdomyolysis which resolved. MRI of the cervical and thoracolumbar spine result reviewed-severe cervical spinal stenosis, severe foraminal stenosis in both her cervical and lumbar region. Patient started on IV dexamethasone for possible cord compression. Noted patient had difficulty moving both upper extremities and shoulders and lower extremities with a concern for quadriparesis. Case discussed with neurology-Dr. Farah, MRI was reviewed him and noted severe cervical spine stenosis up to 7 mm diameter which can explain patient extremity weakness. [facility] contacted for urgent transfer. Patient accepted for transfer. His vitals has been stable. He is stable for transfer. Vital Signs/Physical Exam: Temp Pulse Resp BP Pulse Ox 97.5 F 106 H 18 135/76 99 10/24/21 16:00 10/24/21 16:00 10/24/21 16:00 10/24/21 16:00 10/24/21 16:00 Laboratory Data at Discharge: WBC 15.2 K/uL (4.3-10.9) H D 10/24/21 04:14 Hgb 12.4 g/dL (13.6-17.9) L 10/24/21 04:14 Hct 37.6 % (39.6-49.0) L 10/24/21 04:14 Plt Count 55 K/uL (152-406) L D 10/24/21 04:14 Sodium 143 mmol/L (136-145) 10/24/21 04:14 Potassium 4.0 mmol/L (3.5-5.1) 10/24/21 04:14 BUN 70 mg/dL (7-18) H 10/24/21 04:14 Creatinine 2.10 mg/dL (0.55-1.3) H 10/24/21 04:14 Glucose 133 mg/dL (74-106) H 10/24/21 04:14 Phosphorus 3.4 mg/dL (2.5-4.9) 10/24/21 04:14 Magnesium 2.4 mg/dL (1.8-2.4) D 10/24/21 04:14 Total Bilirubin 1.2 mg/dL (0.2-1.0) H 10/24/21 04:14 AST 43 U/L (15-37) H 10/24/21 04:14 ALT 45 U/L (12-78) 10/24/21 04:14 Alkaline Phosphatase 98 U/L (45-117) 10/24/21 04:14 Triglycerides 207 mg/dL (<150) H 10/23/21 05:25 Cholesterol 97 mg/dL (<200) 10/23/21 05:25 HDL Cholesterol 11 mg/dL (40-60) L 10/23/21 05:25 Cholesterol/HDL Ratio 8.82 10/23/21 05:25 Home Medications: Metoprolol Tartrate [Lopressor] 25 mg PO BID 10/22/21 Followup: NONE,NONE [Primary Care Provider] - Time spent managing pt's care (in minutes): 38
[2021-10-25 06:39] VITALS: BP 113/70; TEMP 97.2
== END 2021-10-24 18:00 | disposition short-term general hospital (02) | DRG 871 ==
LOC: ER 09:01 → ERHOLD 16:40 → 2ND 20:44
PROVIDERS: ADMIT Internal Medicine; ATTEND Internal Medicine
DX: A41.02 Sepsis due to Methicillin resistant Staphylococcus aureus (principal); G82.50 Quadriplegia, unspecified; N17.9 Acute kidney failure, unspecified; M62.82 Rhabdomyolysis; N39.0 Urinary tract infection, site not specified; G95.20 Unspecified cord compression; R65.20 Severe sepsis without septic shock; I10 Essential (primary) hypertension; I25.10 Atherosclerotic heart disease of native coronary artery without angina pectoris; F17.210 Nicotine dependence, cigarettes, uncomplicated; M25.562 Pain in left knee; M25.561 Pain in right knee; F10.10 Alcohol abuse, uncomplicated; D69.6 Thrombocytopenia, unspecified; E78.5 Hyperlipidemia, unspecified; D64.9 Anemia, unspecified; M48.02 Spinal stenosis, cervical region; M48.061 Spinal stenosis, lumbar region without neurogenic claudication; R31.9 Hematuria, unspecified; R74.8 Abnormal levels of other serum enzymes; R47.81 Slurred speech; R79.89 Other specified abnormal findings of blood chemistry; Z95.5 Presence of coronary angioplasty implant and graft; Z95.1 Presence of aortocoronary bypass graft; Z79.899 Other long term (current) drug therapy; Z20.822 Contact with and (suspected) exposure to COVID-19; W01.0XXA Fall on same level from slipping, tripping and stumbling without subsequent striking against object, initial encounter; Y93.9 Activity, unspecified; Y99.0 Civilian activity done for income or pay
CPT/HCPCS: 36415; 72100; 72131; 72141; 72146; 72148; 72170; 76705; 76770; 80053; 80061; 81001; 82306; 82550; 82570; 82728; 82805; 83010; 83036; 83540; 83615; 83735; 83880; 83935; 83970; 84100; 84132; 84156; 84300; 84443; 84466; 85025; 87040; 87077; 87086; 87088; 87186; 87205; 87811; 90471; 90714; 94760; 97110; 97161; 99285; J0692; J1100; J1644; J3370; J3475; J3480; J7030; J7040